=== PATIENT | female | born 1950 ===

== ENCOUNTER 2018-02-20 07:46 | Day surgery (SDC) | payer MEDICARE ==
[2018-02-19 14:02] VITALS: BMI 31.8
[2018-02-20] MEDS ORDERED: Propofol 10 mg/ml Inj (20 ML) ONE ×2 (09:22→09:42)
[2018-02-20] MEDS ORDERED: Lidocaine Hydrochloride 5 ML INJ ONE (09:24)
[2018-02-20] MEDS ORDERED: Lactated Ringer's 1,000 ML IV ONE (09:25)
--- NOTE | 2018-02-20 09:32 | CP.SDSHP ---
Same Day Surgery H & P - History Proposed Procedure: colonoscopy Pre-Op Diagnosis: colitis - Previous Medical/Surgical History Cardiac: Hypertension Endocrine/Metabolic: Thyroid Disease - Allergies Allergies: Allergies No Known Allergies Allergy (Verified 02/19/18 14:01) pt states she is allergic to i.v.contrast dye, iodine and shellfish - Physical Exam Vital Signs: Vital Signs 02/20/18 08:21 Temperature 97.4 F L Pulse Rate 78 Respiratory 19 Rate Blood Pressure 157/74 H O2 Sat by Pulse 98 Oximetry Mental Status: Alert & Oriented x3 Neuro: WNL Heart: WNL Lungs: WNL GI: WNL - {Optional Preform as Required} Abdomen: WNL - Impression Impression: colitis Pt. Evaluated Today:Candidate for Anesthesia & Procedure: Yes - Date & Time Date: 02/20/18 Time: 09:00 Short Stay Discharge - Short Stay Discharge Admitting Diagnosis/Reason for Visit: COLITIS Disposition: HOME/ ROUTINE
[2018-02-20 10:17] VITALS: TEMP 97.3
[2018-02-20 10:45] VITALS: O2SAT 99
[2018-02-20 10:47] VITALS: BP 125/65; PULSE 78; RESP 147
== END 2018-02-20 11:06 | disposition home or self-care (01) ==
LOC: C.ENDO 07:46
PROVIDERS: ATTEND Internal Medicine Gastroenterology
DX: K52.89 Other specified noninfective gastroenteritis and colitis (principal); D12.7 Benign neoplasm of rectosigmoid junction; D12.5 Benign neoplasm of sigmoid colon; K64.8 Other hemorrhoids
CPT/HCPCS: 45380; 87045; 87177; 87209; 87230; 88305; J2704; J7120

== ENCOUNTER 2018-08-07 09:47 | Outpatient (CLI) | payer MEDICARE | END 2018-08-07 09:48 | disposition home or self-care (01) | LOC: C.DEXAIC 09:47 | DX: Z13.820 Encounter for screening for osteoporosis (principal) ==